=== PATIENT | female | born 1995 ===

== ENCOUNTER 2017-09-10 02:32 | Emergency (ER) | payer SELFPAY ==
[2017-09-10] MEDS ORDERED: Ibuprofen 800 MG TAB ONE (02:52)
== END 2017-09-10 02:54 | disposition home or self-care (01) ==
LOC: ERS 02:32
DX: T16.2XXA Foreign body in left ear, initial encounter (principal)
CPT/HCPCS: 99282

== ENCOUNTER 2018-03-12 14:20 | Emergency (ER) | payer SELFPAY ==
[2018-03-12] MEDS ORDERED: predniSONE 20 MG TAB ONE (14:33)
== END 2018-03-12 15:44 | disposition home or self-care (01) ==
LOC: ERS 14:20
DX: J45.901 Unspecified asthma with (acute) exacerbation (principal)
CPT/HCPCS: 94640; 94760; J7506; J7620